=== PATIENT | female | born 1990 | race Caucasian/White ===

== ENCOUNTER 2016-07-10 12:49 | Emergency (ER) | payer OTHER ==
[2016-07-10 13:02] VITALS: BP 161/98; PULSE 87; TEMP 97.2; BMI 62.6
--- NOTE | 2016-07-10 14:45 | PDOC ---
[id number] 5d CONGESTED, HEADACHE Time Seen by Provider: 07/10/16 13:39 History Source: Patient Exam Limitations: No Limitations - History of Present Illness Initial Comments: 07/10/16 13:41 Patient states had onset of cough and cold symptoms for roughly 1 week ago, states was getting better than 2 days ago had a worsened as, chills, body aches , ear and throat pain, nonproductive cough. 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 07/10/16 17:27 Timing/Duration: reports: changing over time, getting worse Severity: reports: mild Past History - Travel Traveled outside of the country in the last 30 days: No Close contact w/someone who was outside of country & ill: No - Past Medical History Allergies/Adverse Reactions: Allergies Allergy/AdvReac Type Severity Reaction Status Date / Time No Known Allergies Allergy Verified 07/10/16 12:59 Home Medications: Ambulatory Orders Acetaminophen [Tylenol .Regular Strength -] 650 mg PO Q4H PRN #1 tablet Ibuprofen [Motrin -] 600 mg PO Q4H PRN #1 tablet 04/12/13 Levothyroxine [Synthroid -] 100 mcg PO DAILY@0700 #1 tablet 04/12/13 Amoxicillin - [Amoxicillin 875mg Tablet -] 875 mg PO BID #20 tablet 09/07/15 Oseltamivir Phosphate [Tamiflu -] 75 mg PO BID #10 capsule 07/10/16 Asthma: No Cancer: No Cardiac Disorders: No Diabetes: No HTN: No Seizures: No Thyroid Disease: Yes (hypothyroidism) - Immunization History Immunization Up to Date: Yes - Psycho/Social/Smoking Cessation Hx Anxiety: No Suicidal Ideation: No Smoking History: Never smoked Have you smoked in the past 12 months: No Information on smoking cessation initiated: No Hx Alcohol Use: No Drug/Substance Use Hx: No Hx Substance Use Treatment: No Review of Systems - Review of Systems Able to Perform ROS?: Yes Is the patient limited Croatian proficient: Yes Constitutional: Yes: Symptoms Reported, See HPI, Chills, Fever, Loss of Appetite , Malaise HEENTM: Yes: See HPI. No: Symptoms Reported Respiratory: Yes: Symptoms reported, See HPI, Cough All Other Systems: Reviewed and Negative *Physical Exam - Vital Signs Last Vital Signs Temp Pulse Resp BP Pulse Ox 97.2 F L 87 20 161/98 96 07/10/16 12:59 07/10/16 12:59 07/10/16 12:59 07/10/16 12:59 07/10/16 12:59 - Physical Exam General Appearance: Yes: Nourished, Appropriately Dressed, Apparent Distress, Mild Distress HEENT: positive: MARIA ISABEL, TMs Normal Neck: positive: Tender (congestive), Supple, Lymphadenopathy (R), Lymphadenopathy (L) Respiratory/Chest: positive: Lungs Clear (course but clear), Normal Breath Sounds, Wheezing Cardiovascular: positive: Regular Rate Gastrointestinal/Abdominal: positive: Normal Bowel Sounds, Soft. negative: Tender Extremity: positive: Normal Capillary Refill, Normal Inspection Integumentary: positive: Dry, Warm, Pale Neurologic: positive: community center worker II-XII NML intact, Fully Oriented, Alert, Normal Mood/ Affect, Normal Response, Motor Strength 5/5 Progress Note - Progress Note Progress Note: Upper respiratory infection, probable influenza. Will treat with Tamiflu *DC/Admit/Observation/Transfer Diagnosis at time of Disposition: Upper respiratory infection, acute - Discharge Dispostion Disposition: HOME Condition at time of disposition: Stable Admit: No - Prescriptions Prescriptions: Oseltamivir Phosphate [Tamiflu -] 75 mg PO BID #10 capsule - Referrals Referrals: Sabi Swift DATA ARCHITECT MANAGER [Primary Care Provider] - - Patient Instructions Printed Discharge Instructions: DI for Viral Upper Respiratory Infection -- Adult Additional Instructions: Rest, drink lots of fluids: Teas, water, soups, Pedialyte Saltwater gargles Steamy showers/seem to face break up mucus Old-fashioned treatments help! Avoid contact with others until fevers and cough resolved as this is very contagious Lots of handwashing and good hygiene Continue feya-lvv-urtjhyk medications for symptomatic relief Tylenol or Motrin for fever and pain Take all of Tamiflu as directed: 1 tab every 12 hours for 5 days Followup with private physician in one to 2 days as needed or if worsening Return to emergency department for worsened symptoms, fevers, dehydration Influenza takes between 5 and 7 days for resolution To not participate in any activity, work, or school until fevers and cough are gone for at least one day - Post Discharge Activity Work/School Note: Back to Work
== END 2016-07-10 13:47 | disposition home or self-care (01) ==
LOC: JERFT 12:49
DX: J06.9 Acute upper respiratory infection, unspecified (principal); E03.9 Hypothyroidism, unspecified
CPT/HCPCS: 99281-25

== ENCOUNTER 2017-09-12 16:46 | Emergency (ER) | payer OTHER ==
[2017-09-12 16:55] VITALS: BP 150/101; PULSE 102; TEMP 98; BMI 60.5
--- NOTE | 2017-09-12 17:04 | PDOC ---
History of Present Illness - General Chief Complaint: Cold Symptoms Stated Complaint: PAIN Time Seen by Provider: 09/12/17 17:00 History Source: Patient Exam Limitations: No Limitations - History of Present Illness Initial Comments: 09/12/17 17:30 Patient is here with complaints of frontal ethmoid and maxillary sinus pain 2 weeks. States had a URI with everyone else in the foot is progressively worsened to now where she has significant tenderness, fullness to her sinuses and thick yellow-green drainage from her nose. Has used [id number] medications including Sudafed for cough and sinus pressure that has progressively worsened. Timing/Duration: reports: getting worse Severity: reports: mild, moderate Associated Symptoms: reports: chest pain/soreness, headache, nasal congestion, sinus infection Past History - Travel Traveled outside of the country in the last 30 days: No Close contact w/someone who was outside of country & ill: No - Past Medical History Allergies/Adverse Reactions: Allergies Allergy/AdvReac Type Severity Reaction Status Date / Time No Known Allergies Allergy Verified 09/12/17 16:54 Home Medications: Ambulatory Orders Amox-Tr/K Cl [Augmentin 875Mg Tablet] 1 tab PO BID #24 tablet 09/12/17 Asthma: No Cancer: No Cardiac Disorders: No COPD: No Diabetes: No HTN: No Seizures: No Thyroid Disease: Yes (hypothyroidism) - Immunization History Immunization Up to Date: Yes - Suicide/Smoking/Psychosocial Hx Smoking History: Never smoked Have you smoked in the past 12 months: No Hx Alcohol Use: No Drug/Substance Use Hx: No Hx Substance Use Treatment: No Review of Systems - Review of Systems Able to Perform ROS?: Yes Is the patient limited Serbian proficient: Yes Constitutional: Yes: Symptoms Reported, See HPI, Malaise. No: Fever HEENTM: Yes: Symptoms Reported, See HPI, Nose Congestion Respiratory: Yes: See HPI. No: Cough All Other Systems: Reviewed and Negative *Physical Exam - Vital Signs Last Vital Signs Temp Pulse Resp BP Pulse Ox 98 F 102 H 20 150/101 95 09/12/17 16:51 09/12/17 16:51 09/12/17 16:51 09/12/17 16:51 09/12/17 16:51 - Physical Exam General Appearance: Yes: Nourished, Appropriately Dressed HEENT: positive: TMs Normal, Rhinorrhea (congested but landmarks easily visualized), Sinus Tenderness (fullness and tenderness to frontal ethmoid and maxillary sinuses). negative: Normal ENT Inspection Neck: positive: Tender, Supple, Lymphadenopathy (R), Lymphadenopathy (L) Respiratory/Chest: positive: Lungs Clear, Normal Breath Sounds. negative: Wheezing Gastrointestinal/Abdominal: positive: Soft. negative: Normal Bowel Sounds Extremity: positive: Normal Capillary Refill Integumentary: positive: Dry, Warm Neurologic: positive: hairmasters manager II-XII NML intact, Fully Oriented, Normal Mood/Affect , Normal Response, Motor Strength 09/26 Progress Note - Progress Note Progress Note: Sinusitis, will treat with Augmentin *DC/Admit/Observation/Transfer Diagnosis at time of Disposition: Sinusitis Qualifiers: Sinusitis location: frontal Chronicity: acute Recurrence: not specified as recurrent Qualified Code(s): J01.10 - Acute frontal sinusitis, unspecified - Discharge Dispostion Disposition: HOME Condition at time of disposition: Stable Admit: No - Referrals Referrals: Derek Welch MD [Primary Care Provider] - - Patient Instructions Printed Discharge Instructions: DI for Sinusitis Additional Instructions: Rest, drink lots of fluids: Teas, water, soups Saltwater gargles. Consider humidifier in room at night Steamy showers/seem to face break up mucus Avoid contact with allergens, exposure to pollens, close windows on a windy day Lots of handwashing and good hygiene Continue vnys-owm-hgcffyu medications for symptomatic relief- Augmentin 875 mg tablet every 12 hours for 2 weeks total Tylenol or Motrin for fever and pain Followup with private physician in one to 2 days as needed Consider following up with an change coordinator/periodontist for skin testing and possible allergy shots Return to emergency department for worsened symptoms, fevers, dehydration - Post Discharge Activity
[2017-09-12] MEDS ORDERED: AMOX TR/POT CLAV 875MG/125MG TABLETS (FP) PO ONE (17:21)
[2017-09-12] MEDS ORDERED: IBUPROFEN 400 MG TABLET (FP) PO ONE ×2 (17:21→17:25)
[2017-09-12] MEDS ORDERED: AMOX TR/POT CLAV 875MG/125MG TABLETS (FP) ONE (17:25)
== END 2017-09-12 17:33 | disposition home or self-care (01) ==
LOC: JERFT 16:46
DX: J01.10 Acute frontal sinusitis, unspecified (principal); E03.9 Hypothyroidism, unspecified
CPT/HCPCS: 99281-25

== ENCOUNTER 2017-12-13 08:00 | Emergency (ER) | payer OTHER ==
[2017-12-13 08:04] VITALS: BP 155/114; PULSE 84; TEMP 98; BMI 54.9
--- NOTE | 2017-12-13 09:00 | PDOC ---
History of Present Illness - General Chief Complaint: Pain, Acute Stated Complaint: FALL Time Seen by Provider: 12/13/17 08:10 History Source: Patient - History of Present Illness Occurred: reports: this morning Upper Extremity Pain Location: right: forearm Method of Injury: reports: fell Past History - Past Medical History Allergies/Adverse Reactions: Allergies Allergy/AdvReac Type Severity Reaction Status Date / Time No Known Allergies Allergy Verified 12/13/17 08:04 Home Medications: Ambulatory Orders NK [No Known Home Medication] 12/13/17 Asthma: No Cancer: No Cardiac Disorders: No COPD: No Diabetes: No HTN: No Seizures: No Thyroid Disease: Yes (hypothyroidism) - Immunization History Immunization Up to Date: Yes - Suicide/Smoking/Psychosocial Hx Smoking History: Never smoked Have you smoked in the past 12 months: No Information on smoking cessation initiated: No Hx Alcohol Use: No Drug/Substance Use Hx: No Hx Substance Use Treatment: No Review of Systems - Review of Systems Musculoskeletal: Yes: Joint Pain Integumentary: No: Bruising *Physical Exam - Vital Signs Last Vital Signs Temp Pulse Resp BP Pulse Ox 98.0 F 84 16 155/114 100 12/13/17 08:02 12/13/17 08:02 12/13/17 08:02 12/13/17 08:02 12/13/17 08:02 - Physical Exam General Appearance: Yes: Appropriately Dressed. No: Apparent Distress HEENT: positive: Normal Voice Neck: positive: Supple Respiratory/Chest: negative: Respiratory Distress Extremity: positive: Normal Inspection, Tender (diffusely to R forearm, no joint swelling/deformity, no ttp to snuffbox) Integumentary: positive: Dry, Warm Neurologic: positive: Alert, Normal Mood/Affect ED Treatment Course - RADIOLOGY Radiology Studies Ordered: Category Date Time Status FOREARM- RIGHT [RAD] Stat Radiology 12/13/17 08:53 Ordered SHOULDER-RIGHT [RAD] Stat Radiology 12/13/17 08:16 Ordered Medical Decision Making - Medical Decision Making 12/13/17 08:55 27 yo morbidly obesed female, p/w R forearm pain s/p using RUE to break fall this am. Denies any other injuries at this time. Pt well sebastian and in NAD w/ diffuse ttp to R forearm. M./l strain, unlikely fx. Pain control, XR 07/22/18 09:17 Xrays neg for fx. Dc w/ OTC pain meds *DC/Admit/Observation/Transfer Diagnosis at time of Disposition: Strain of upper arm Qualifiers: Encounter type: initial encounter Laterality: right Qualified Code(s): S46.911A - Strain of unspecified muscle, fascia and tendon at shoulder and upper arm level, right arm, initial encounter - Discharge Dispostion Disposition: HOME Condition at time of disposition: Good - Referrals Referrals: Sabi Swift NP [Primary Care Provider] - - Patient Instructions Printed Discharge Instructions: Muscle Strain Additional Instructions: Take motrin or tylenol as needed for pain - Post Discharge Activity
== END 2017-12-13 09:16 | disposition home or self-care (01) ==
LOC: JERFT 08:00
DX: S46.811A Strain of other muscles, fascia and tendons at shoulder and upper arm level, right arm, initial encounter (principal); W18.39XA Other fall on same level, initial encounter; Y93.89 Activity, other specified; Y92.89 Other specified places as the place of occurrence of the external cause; Y99.8 Other external cause status; E66.01 Morbid (severe) obesity due to excess calories; Z68.43 Body mass index [BMI] 50.0-59.9, adult
CPT/HCPCS: 73030-TC-RT-FY; 73090-TC-RT-FY; 99281-25

== ENCOUNTER 2018-09-11 10:28 | Emergency (ER) | payer OTHER ==
[2018-09-11 10:31] VITALS: BP 134/73; PULSE 75; TEMP 98.1; BMI 62.1
[2018-09-11] MEDS ORDERED: AMOXICILLIN 500 MG CAPSULE (FP) PO ONE (11:05)
[2018-09-11] MEDS ORDERED: AMOXICILLIN 250 MG CAPSULE ONE (11:08)
--- NOTE | 2018-09-11 11:08 | PDOC ---
History of Present Illness - General Chief Complaint: Toothache Stated Complaint: RT SIDE SWOLLEN CHEEK, AND LIPS Time Seen by Provider: 09/11/18 10:32 History Source: Patient Exam Limitations: No Limitations - History of Present Illness Initial Comments: 09/11/18 11:03 Here with complaints of cracked upper right first molar and swelling to face onset this morning. Denies fever, states is not exquisitely painful but was concerned about the facial swelling. Phobia and was too afraid to have it evaluated there. Past History - Travel Traveled outside of the country in the last 30 days: No Close contact w/someone who was outside of country & ill: No - Past Medical History Allergies/Adverse Reactions: Allergies Allergy/AdvReac Type Severity Reaction Status Date / Time No Known Allergies Allergy Verified 09/11/18 10:31 Home Medications: Ambulatory Orders Amoxicillin - [Amoxicillin 500mg Capsule -] 500 mg PO TID #21 capsule 09/11/18 Asthma: No Cancer: No Cardiac Disorders: No COPD: No Diabetes: No HTN: No Seizures: No Thyroid Disease: Yes (hypothyroidism) - Immunization History Immunization Up to Date: Yes - Suicide/Smoking/Psychosocial Hx Smoking History: Never smoked Have you smoked in the past 12 months: No Hx Alcohol Use: No Drug/Substance Use Hx: No Hx Substance Use Treatment: No Review of Systems - Review of Systems Able to Perform ROS?: Yes Is the patient limited Cymro proficient: Yes Constitutional: Yes: Symptoms Reported, See HPI, Malaise. No: Chills, Fever HEENTM: Yes: Symptoms Reported, See HPI, Mouth Pain, Dental Problems, Mouth Swelling, Other (facial swelling ). No: Difficulty Swallowing Respiratory: Yes: See HPI. No: Symptoms reported, Cough *Physical Exam - Vital Signs Last Vital Signs Temp Pulse Resp BP Pulse Ox 98.1 F 75 18 134/73 99 09/11/18 10:29 09/11/18 10:29 09/11/18 10:29 09/11/18 10:29 09/11/18 10:29 - Physical Exam General Appearance: Yes: Nourished, Appropriately Dressed, Apparent Distress, Mild Distress HEENT: positive: MARIA ISABEL, Normal ENT Inspection, TMs Normal, Pharynx Normal, Other (upper right fisrst molar cracked in 1/2 exposing pulp to inner aspect . Facial swelling, but no true abscess palpated to inner or outer gingival surface of dental injury or in cheek). negative: Rhinorrhea Neck: positive: Tender, Supple, Lymphadenopathy (R), Lymphadenopathy (L) Respiratory/Chest: positive: Lungs Clear Integumentary: positive: Normal Color Neurologic: positive: demand generator manager II-XII NML intact, Fully Oriented, Alert, Normal Mood/ Affect, Normal Response, Motor Strength 5/5 *DC/Admit/Observation/Transfer Diagnosis at time of Disposition: Pain, dental - Discharge Dispostion Disposition: HOME Condition at time of disposition: Stable Decision to Admit order: No - Referrals - Patient Instructions Printed Discharge Instructions: DI for Dental Pain Additional Instructions: Rest, drink lots of fluids: Teas, water, soups Saltwater gargles/ keep mouth clean and rinse after each meal May use wet teabag for pain relief to area Avoid hard chewing foods, stick to ice cream, Jell-O, yogurt etc. Tylenol or Motrin for fever and pain Complete all medication as prescribed Seek dental appointment as soon as possible for evaluation of dental injury/pain Followup with private physician in one to 2 days as needed Return to emergency department for worsened symptoms, fevers, swelling to face or worsened pain - Post Discharge Activity
== END 2018-09-11 11:10 | disposition home or self-care (01) ==
LOC: JERFT 10:28
DX: K08.89 Other specified disorders of teeth and supporting structures (principal)
CPT/HCPCS: 99281-25

== ENCOUNTER 2019-04-15 04:11 | Emergency (ER) | payer OTHER ==
[2019-04-15 04:41] VITALS: BP 125/84; PULSE 88; TEMP 97.8; BMI 56.6
[2019-04-15] MEDS ORDERED: IBUPROFEN 600 MG TABLET (FP) PO ONE ×2 (04:57→04:59)
--- NOTE | 2019-04-15 04:59 | PDOC ---
History of Present Illness - General Chief Complaint: Sore Throat Stated Complaint: CONGESTION AND THROAT PAIN Time Seen by Provider: 04/15/19 04:46 - History of Present Illness Initial Comments: Bouchra Vela is a 28yo woman with a PMH of hypothyroidism and morbid obesity who presents with 2 days of cold symptoms and now worsening sore throat. She reports that she started having sore throat, congestion, and dry cough 2-3 days ago. She initially thought her symptoms were due to a cold, but the sore throat has worsened over the past few days. She reports that at this point she is having difficulty swallowing anything, including water, due to pain and has barely been able to eat or drink over the past day. The pain kept her awake despite taking Dayquil or Nyquil every 6 hours. Ms Vela denies any fevers/chills, chest pain, difficulty breathing, nausea/ vomiting, change in bowel habits, or known sick contacts though she notes that she works at [employer] and may have unknown exposures. Past History - Past Medical History Allergies/Adverse Reactions: Allergies Allergy/AdvReac Type Severity Reaction Status Date / Time No Known Allergies Allergy Verified 04/15/19 04:26 Home Medications: Ambulatory Orders NK [No Known Home Medication] 04/15/19 Asthma: No Cancer: No Cardiac Disorders: No COPD: No Diabetes: No HTN: No Seizures: No Thyroid Disease: Yes (hypothyroidism) - Immunization History Immunization Up to Date: Yes - Psycho Social/Smoking Cessation Hx Smoking History: Never smoked Have you smoked in the past 12 months: No Information on smoking cessation initiated: No Hx Alcohol Use: No Drug/Substance Use Hx: No Hx Substance Use Treatment: No Review of Systems - Review of Systems Comments:: General: No fevers, no chills, no weight or appetite change, no malaise HEENT: See HPI CV: No chest pain, no palpitations, no LE edema Pulm: No SOB, + cough, no wheezing GI: No nausea or vomiting, no change in bowel habits, no melena : No frequency, no urgency, no dysuria Musc: No back pain, no joint swelling, no recent injury Skin: No rash, no lesions, no erythema Endo: No excessive thirst, no heat/cold intolerance Heme: No unusual bruising or bleeding, no swollen glands Neuro: No syncope, no numbness/tingling, no focal weakness Vasc: No claudication Psych: No recent change in mood, no SI or HI *Physical Exam - Vital Signs Last Vital Signs Temp Pulse Resp BP Pulse Ox 97.8 F 88 20 125/84 99 04/15/19 04:27 04/15/19 04:27 04/15/19 04:27 04/15/19 04:27 04/15/19 04:27 - Physical Exam Comments: General: Comfortable, no acute distress HEENT: Atraumatic, PERRL, EOMI, MMM, TM clear, Tonsillar enlargement w/o exudate , voice normal, normal neck ROM, no LAD Cards: RRR, no murmur appreciated Pulm: Comfortable on room air, clear to auscultation bilaterally Abd: Soft, nontender, nondistended Ext: Atraumatic. No LE edema. ROM intact. WWP Skin: Normal color, no rashes or lesions Neuro: A&Ox3, CN grossly intact, normal speech, motor/sensory grossly intact and symmetric Psych: Mood appropriate to situation Medical Decision Making - Medical Decision Making 04/15/19 04:56 Bouchra Vela is a 28yo woman with a PMH of hypothyroidism and morbid obesity who presents with 2 days of cold symptoms and now worsening sore throat. - Most likely viral illness (pharyngitis, tonsillitis) v strep - Rapid strep sent - Ibuprofen 600mg for pain 04/15/19 05:52 - Strep negative. Most likely viral pharyngitis or viral URI - Discussed home care, PMD follow up with Ms Vela. She states understands and agrees Discussed with Dr Mark Hood PGY2 Discharge - Discharge Information Problems reviewed: Yes Clinical Impression/Diagnosis: Upper respiratory infection, acute Condition: Stable Disposition: HOME - Admission No - Follow up/Referral Referrals: Lea Benedict MD [Primary Care Provider] - - Patient Discharge Instructions Patient Printed Discharge Instructions: DI for Viral Pharyngitis Additional Instructions: Discharge Instructions: You were seen in the emergency department for sore throat, cough, and congestion. Your symptoms are most likely due to a viral illness and will improve over time. Home Care and Follow Up: - You may use over the counter medications as needed for pain at home. 650- 1000mg acetaminophen (Tylenol) or 600mg ibuprofen (Motrin or Advil) can be used every 6-8 hours. If needed for continued pain, these medications may be alternated every 3-4 hours. For example, if you take ibuprofen at 9am, you may take acetaminophen at noon, ibuprofen at 3pm, etc. Be aware that many cold medications already contain acetaminophen or ibuprofen - Drink plenty of fluids. Make sure you are staying well hydrated. - Consider placing a humidifier in your bedroom or take a hot shower to help with congestion - If your pain does not improve over the next week, please see your regular doctor for follow up. - Seek immediate medical care if you have significant worsening of your symptoms , you are unable to eat or drink, you develop high fever over 104F that does not improve with medications, or you have any other medical emergency. - Post Discharge Activity Work/Back to School Note: Back to Work
--- NOTE | 2019-04-15 05:26 | PDOC ---
Attending Attestation - Resident Resident Name: SanaReva - ED Attending Attestation I have performed the following: I have examined & evaluated the patient, The case was reviewed & discussed with the resident, I agree w/resident's findings & plan, Exceptions are as noted - HPI HPI: 04/15/19 07:26 Agree with resident HPI - Physicial Exam PE: 04/15/19 07:26 Agree with resident exam - Medical Decision Making 04/15/19 07:26 Cold symptoms with sore throat likely viral syndrome/phayrngitis symptomatic tx rapid strep neg dc
== END 2019-04-15 05:51 | disposition home or self-care (01) ==
LOC: JER 04:11
DX: J06.9 Acute upper respiratory infection, unspecified (principal); J02.9 Acute pharyngitis, unspecified; B97.89 Other viral agents as the cause of diseases classified elsewhere; E03.9 Hypothyroidism, unspecified; E66.01 Morbid (severe) obesity due to excess calories; Z68.43 Body mass index [BMI] 50.0-59.9, adult
CPT/HCPCS: 87070; 87880; 99282-25

== ENCOUNTER 2019-05-30 15:29 | Emergency (ER) | payer OTHER ==
[2019-05-30] MEDS ORDERED: ACETAMINOPHEN 325 MG TABLET (FP) PO ONE (16:09)
--- NOTE | 2019-05-30 16:09 | PDOC ---
Rapid Medical Evaluation Medical Evaluation: Allergies Allergy/AdvReac Type Severity Reaction Status Date / Time No Known Allergies Allergy Verified 04/15/19 04:26 I have performed a brief in-person evaluation of this patient. The patient presents with a chief complaint of: +fever, congestion, rhinorrhea and body aches x 3 days; took Motrin at 8 AM today; denies diarrhea; is able to keep down liquids Pertinent physical exam findings: In NAD I have ordered the following: Tylenol, Flu The patient will proceed to the ED for further evaluation. 05/30/19 16:07
[2019-05-30 16:10] VITALS: BP 161/73; PULSE 142; BMI 61.1
[2019-05-30] MEDS ORDERED: ACETAMINOPHEN 325 MG TABLET (FP) ONE (16:33)
[2019-05-30] MEDS ORDERED: IBUPROFEN 600 MG TABLET (FP) PO ONE ×2 (17:55→18:10)
--- NOTE | 2019-05-30 17:58 | PDOC ---
History of Present Illness - General Chief Complaint: Respiratory Stated Complaint: Cold Symptoms Time Seen by Provider: 05/30/19 16:07 History Source: Patient Exam Limitations: No Limitations Past History - Travel Traveled outside of the country in the last 30 days: No Close contact w/someone who was outside of country & ill: No - Past Medical History Allergies/Adverse Reactions: Allergies Allergy/AdvReac Type Severity Reaction Status Date / Time No Known Allergies Allergy Verified 05/30/19 16:10 Home Medications: Ambulatory Orders Ibuprofen 600 mg PO Q6H #30 tablet 05/30/19 Oseltamivir Phosphate [Tamiflu] 75 mg PO BID #10 capsule 05/30/19 Asthma: No Cancer: No Cardiac Disorders: No COPD: No Diabetes: No HTN: No Seizures: No Thyroid Disease: Yes (hypothyroidism) - Immunization History Immunization Up to Date: Yes - Psycho Social/Smoking Cessation Hx Smoking History: Never smoked Have you smoked in the past 12 months: No Hx Alcohol Use: No Drug/Substance Use Hx: No Hx Substance Use Treatment: No Review of Systems - Review of Systems Able to Perform ROS?: Yes Comments:: 05/30/19 17:55 CONSTITUTIONAL: Present: Fever, chills, body aches Absent: diaphoresis, generalized weakness, malaise, loss of appetite HEENT: Present: rhinorrhea, nasal congestion, throat pain. Absent: difficulty swallowing, mouth swelling, ear pain, eye pain, visual Changes CARDIOVASCULAR: Absent: chest pain, loss of consciousness, palpitations, irregular heart rate, peripheral edema RESPIRATORY: Present: Cough Absent: shortness of breath, dyspnea with exertion, orthopnea, wheezing, stridor, hemoptysis GASTROINTESTINAL: Absent: abdominal pain, abdominal distension, nausea, vomiting, diarrhea, constipation, melena, hematochezia SKIN: Absent: rash, itching, pallor NEUROLOGIC: Present: headache Absent: focal weakness or paresthesias, dizziness, unsteady gait, seizure, mental status changes, bladder or bowel incontinence Is the patient limited Portuguese proficient: No *Physical Exam - Vital Signs Last Vital Signs Temp Pulse Resp BP Pulse Ox 101.4 F H 142 H 16 161/73 95 05/30/19 16:07 05/30/19 16:07 05/30/19 16:07 05/30/19 16:07 05/30/19 16:07 - Physical Exam 05/30/19 17:56 GENERAL: Well developed, well nourished. Awake and alert. No acute distress. Diaphoretic HEENT: Normocephalic, atraumatic. PERRLA, EOMI. No conjunctival pallor. Sclera are non- icteric. Moist mucous membranes. Oropharynx is clear. NECK: Supple. Full ROM. No JVD. Carotid pulses 2+ and symmetric, without bruits. No thyromegaly. No lymphadenopathy. CARDIOVASCULAR: Regular rate and rhythm. No murmurs, rubs, or gallops. Distal pulses are 2+ and symmetric. PULMONARY: No evidence of respiratory distress. Lungs clear to auscultation bilaterally. No wheezing, rales or rhonchi. ABDOMINAL: Soft. Non-tender. Non-distended. No rebound or guarding. No organomegaly. Normoactive bowel sounds. MUSCULOSKELETAL Normal range of motion at all joints. No bony deformities or tenderness. No CVA tenderness. EXTREMITIES: No cyanosis. No clubbing. No edema. No calf tenderness. SKIN: Warm and dry. Normal capillary refill. No rashes. No jaundice. NEUROLOGICAL: Alert, awake, appropriate. Cranial nerves 2-12 intact. No deficits to light touch and temperature in face, upper extremities and lower extremities. No motor deficits in the in face, upper extremities and lower extremities. Normoreflexic in the upper and lower extremities. Normal speech. Toes are down- going bilaterally. Gait is normal without ataxia. PSYCHIATRIC: Cooperative. Good eye contact. Appropriate mood and affect. ED Treatment Course - Medications Given in the ED: ED Medications Discontinued Medications Generic Name Dose Route Start Last Admin Trade Name Freq PRN Reason Stop Dose Admin Acetaminophen 975 mg 05/30/19 16:09 05/30/19 17:04 Tylenol - PO 05/30/19 16:10 975 mg ONCE ONE Administration Medical Decision Making - Medical Decision Making 05/30/19 17:56 Patient is a 28-year-old female no past medical history who presents the ER today for headache, body aches and fever for 1 day. She states she was at work when her symptoms started. She also endorses a cough. She did receive a flu shot this year. A/P: Flulike symptoms On exam patient is diaphoretic, was given Tylenol. She reports feeling better now that the fever is starting to break. Lungs are clear to auscultation bilateral with no wheezes rales or rhonchi. Patient is tachycardic likely due to fever Ears are clear. Patient's flu a positive. Within Tamiflu window. Will treat. Discharge home to have patient follow-up with her primary care doctor. Return precautions given. I discussed the physical exam findings, ancillary test results and final diagnoses with the patient. I answered all of the patient's questions. The patient was satisfied with the care received and felt comfortable with the discharge plan and treatment plan. The Patient agrees to follow up with the primary care physician/specialist within 24-72 hours. Return precautions were given. Discharge - Discharge Information Problems reviewed: Yes Clinical Impression/Diagnosis: Influenza A Condition: Stable Disposition: HOME - Admission No - Follow up/Referral Referrals: Lea Benedict MD [Primary Care Provider] - - Patient Discharge Instructions Patient Printed Discharge Instructions: DI for Influenza -- Adult Additional Instructions: You have the flu. This is a virus that will get better on its own in approximately 7-10 days. You will most likely have a fever for 7-10 days because of the flu. This is to be expected. Drink plenty of fluids to prevent dehydration and get plenty of rest. Warm tea and cough drops may help your symptoms as well. Take the tamiflu twice a day for 5 days to help reduce the symptoms of the flu. This medication will not cure the flu. Take Motrin as directed for pain and fever. Take all other medications as prescribed. Follow up with your primary care doctor this week Return to the ED for difficulty breathing, shortness of breath, weakness, or if you have any other changes in your symptoms. - Post Discharge Activity Work/Back to School Note: Back to Work
[2019-05-30 18:13] VITALS: TEMP 98.9
== END 2019-05-30 18:13 | disposition home or self-care (01) ==
LOC: JERFT 15:29
DX: J09.X2 Influenza due to identified novel influenza A virus with other respiratory manifestations (principal); E03.9 Hypothyroidism, unspecified
CPT/HCPCS: 87804; 99281-25

== ENCOUNTER 2023-10-28 11:51 | Emergency (ER) | payer OTHER ==
[2023-10-28 11:59] VITALS: BMI 61.4
[2023-10-28 13:18] LABS: EPI CELLS >36 /uL (0-25.1); HYALINE CASTS 1 /uL (0-3.1); URINE APPEARANCE CLEAR; URINE BACTERIA 449 /uL (0-1359); URINE BILIRUBIN NEGATIVE (NEGATIVE); URINE COLOR YELLOW; URINE GLUCOSE (UA) 3+ (NEGATIVE); URINE KETONE NEGATIVE (NEGATIVE); URINE LEUK ESTERASE 1+ (NEGATIVE); URINE NITRITE NEGATIVE (NEGATIVE); URINE PROTEIN NEGATIVE (NEGATIVE); URINE RBC 15 /uL (0-23.9); URINE UROBILINOGEN 0.2 mg/dL (0.2-1.0); URINE WBC 36 /uL (0-25.8)
[2023-10-28 13:27] LABS: HCG,QUALITATIVE URINE Negative
[2023-10-28] MEDS ORDERED: ONDANSETRON 4 MG/2 ML VIAL ONE (14:37)
[2023-10-28] MEDS: ONDANSETRON 4 MG/2 ML VIAL IVPUSH ONE (14:42)
[2023-10-28] MEDS: SODIUM CHLORIDE 1,000 ML IV STA (14:42)
[2023-10-28 14:57] LABS: BASO % 0.8 % (0-2.0); EOS % 2.6 % (0-4.5); HEMATOCRIT 46.1 % (32.4-45.2); HEMOGLOBIN 15.7 GM/dL (10.7-15.3); LYMPH % 27.1 % (8-40); MCH 30.6 pg (25.7-33.7); MCHC 33.9 g/dl (32.0-36.0); MEAN CELL VOLUME 90.2 fl (80-96); MEAN PLT VOLUME 8.5 fl (7.5-11.1); MONO % 5.1 % (3.8-10.2); NEUT % 64.4 % (42.8-82.8); PLATELET COUNT 303 10^3/uL (134-434); RBC 5.12 M/mm3 (3.60-5.2); RDW 13.5 % (11.6-15.6); WHITE BLOOD COUNT 9.7 K/mm3 (4.0-10.0)
[2023-10-28 15:11] LABS: POTASSIUM 4.9 mmol/L (3.5-5.1)
[2023-10-28 15:13] LABS: BLOOD UREA NITROGEN 14.1 mg/dL (7-18); CALCIUM 9.7 mg/dL (8.5-10.1)
[2023-10-28 15:16] LABS: CREATININE 0.5 mg/dL (0.55-1.3)
[2023-10-28 15:18] LABS: BILIRUBIN,TOTAL 0.6 mg/dL (0.2-1); TOT PROT 8.3 g/dl (6.4-8.2)
[2023-10-28] MEDS: LACTATED RINGERS SOLUTION 1,000 ML/1,000 ML INFUS.BAG IV SCH (21:09)
[2023-10-28 22:42] VITALS: BP 143/82; PULSE 72; RESP 16
[2023-10-29 01:30] VITALS: TEMP 97.8
== END 2023-10-29 00:50 | disposition short-term general hospital (02) ==
LOC: JER 11:51
PROC: 3E033NZ Introduction of Analgesics, Hypnotics, Sedatives into Peripheral Vein, Percutaneous Approach (ICD-10-PCS; principal; 2023-10-28)
PROC: 3E0337Z Introduction of Electrolytic and Water Balance Substance into Peripheral Vein, Percutaneous Approach (ICD-10-PCS; 2023-10-28)
DX: R10.10 Upper abdominal pain, unspecified (principal); K80.21 Calculus of gallbladder without cholecystitis with obstruction; N30.00 Acute cystitis without hematuria; N83.202 Unspecified ovarian cyst, left side; R73.9 Hyperglycemia, unspecified; Z20.822 Contact with and (suspected) exposure to COVID-19
CPT/HCPCS: 0241U-QW; 36415; 74177-TC; 76705-TC; 76856-TC; 80053; 81003; 82962; 83690; 84703; 85025; 87086; 93005; 93010; 99285-25; Q9967

== ENCOUNTER 2023-11-26 20:31 | Emergency (ER) | payer OTHER ==
[2023-11-26 20:37] VITALS: BMI 59.2
[2023-11-26] MEDS ORDERED: ACETAMINOPHEN 325 MG TABLET (FP) ONE (21:06)
[2023-11-26] MEDS: ACETAMINOPHEN 325 MG TABLET (FP) PO ONE (21:17)
[2023-11-26] MEDS ORDERED: KETOROLAC TROMETHAMINE 15 MG/ML VIAL ONE (21:18)
[2023-11-26] MEDS: KETOROLAC TROMETHAMINE 15 MG/ML VIAL IVPUSH ONE (21:55)
[2023-11-26 22:00] LABS: BASO % 0.5 % (0-2.0); EOS % 2.5 % (0-4.5); HEMATOCRIT 39.7 % (32.4-45.2); HEMOGLOBIN 13.6 GM/dL (10.7-15.3); LYMPH % 17.2 % (8-40); MCH 30.7 pg (25.7-33.7); MCHC 34.2 g/dl (32.0-36.0); MEAN CELL VOLUME 89.8 fl (80-96); MONO % 5.8 % (3.8-10.2); PLATELET COUNT 310 10^3/uL (134-434); RBC 4.42 M/mm3 (3.60-5.2); RDW 13.1 % (11.6-15.6); WHITE BLOOD COUNT 9.7 K/mm3 (4.0-10.0)
[2023-11-26 22:08] LABS: INR 1.06 (0.83-1.09)
[2023-11-26 22:11] LABS: ACTIVATED PTT 35.4 SECONDS (25.2-36.5)
[2023-11-26 22:24] LABS: POTASSIUM 4.4 mmol/L (3.5-5.1)
[2023-11-26 22:26] LABS: CALCIUM 9.3 mg/dL (8.5-10.1)
[2023-11-26 22:27] LABS: ALBUMIN 4.2 g/dl (3.4-5.0); BLOOD UREA NITROGEN 15.4 mg/dL (7-18)
[2023-11-26 22:31] LABS: TOT PROT 7.5 g/dl (6.4-8.2)
[2023-11-26 22:32] LABS: BILIRUBIN,TOTAL 0.6 mg/dL (0.2-1); CREATININE 0.6 mg/dL (0.55-1.3)
[2023-11-26 23:45] VITALS: BP 120/64; PULSE 66; RESP 18; TEMP 98.2
== END 2023-11-27 00:17 | disposition short-term general hospital (02) ==
LOC: JER 20:31
PROC: 3E0333Z Introduction of Anti-inflammatory into Peripheral Vein, Percutaneous Approach (ICD-10-PCS; principal; 2023-11-26)
DX: N83.202 Unspecified ovarian cyst, left side (principal); R10.32 Left lower quadrant pain; R11.0 Nausea; X50.0XXA Overexertion from strenuous movement or load, initial encounter; Y99.0 Civilian activity done for income or pay; Z20.822 Contact with and (suspected) exposure to COVID-19
CPT/HCPCS: 0241U-QW; 36415; 76830-TC; 80053; 84703; 85025; 85610; 85730; 86850; 86900; 86901; 99285-25